=== PATIENT | female | born 1975 ===

== ENCOUNTER 2020-03-28 21:03 | Emergency (ER) | payer OTHER ==
[~2020-03-28] VITALS: Ht 154.9 cm; Wt 71.7 kg
[~2020-03-28 21:03] MED LIST: ALBUTEROL17 GM; LEXAPRO5 MG; ZYRTEC5 MG
[2020-03-28] MEDS ORDERED: PRENATABS FA T1 EACH PO (21:20)
[2020-03-28] MEDS ORDERED: FOLIC ACID0.8 M1 PO (21:20)
== END 2020-03-29 09:17 | disposition home or self-care (01) ==
LOC: ER 21:03
DX: O20.8 Other hemorrhage in early pregnancy (principal); Z3A.01 Less than 8 weeks gestation of pregnancy

== ENCOUNTER 2020-03-30 13:36 | Emergency (ER) | payer OTHER ==
[~2020-03-30] VITALS: Ht 154.9 cm; Wt 71.7 kg
[~2020-03-30 13:36] MED LIST changes: +FOLIC ACID0.8 M1 PO; +PRENATABS FA T1 EACH PO
== END 2020-03-30 18:33 | disposition home or self-care (01) ==
LOC: ER 13:36
DX: O03.6 Delayed or excessive hemorrhage following complete or unspecified spontaneous abortion (principal); O26.851 Spotting complicating pregnancy, first trimester; O36.80X0 Pregnancy with inconclusive fetal viability, not applicable or unspecified; Z3A.01 Less than 8 weeks gestation of pregnancy